=== PATIENT | male | born 1975 | race Caucasian/White ===

== ENCOUNTER 2018-11-11 01:33 | Emergency (ER) | payer BC, OTHER ==
--- NOTE | 2018-11-11 01:41 | Emergency Department Record ---
History of Present Illness - General Stated Complaint: ABDOMINAL PAIN Time Seen by Provider: 11/11/18 01:34 Source: Patient Mode of Arrival: Ambulatory Limitations: No limitations - History of Present Illness Initial Comments: 43 yo male presents not feeling well since 2pm. He developed initially some mild abdominal pain that increased over an hour. The pain is diffuse. After about an hour he developed nausea and diarrhea. The diarrhea has continued about every 1-2 hours. No blood. The abdominal pain has continued and progressed. The pain is still diffuse but he has more pain on the right side now. The appetite is diminished but no vomiting. No abdominal surgical history. PCP is Dr Annis. CROWELL Complaint: Abdominal pain, Other (nausea without vomiting and diarrhea) -: Hour(s) (12) Location: Diffuse, RLQ Radiation: RLQ Migration to: RLQ Severity: Severe Quality: Aching, Cramping Consistency: Constant Improves With: Nothing Worsens With: Eating Context: Other Associated Symptoms: Anorexia, Diarrhea - Related Data Previous Rx's Medication Instructions Recorded Ondansetron [Zofran Odt] 4 mg PO NOW #15 tab.rapdis 11/11/18 Allergies Allergy/AdvReac Type Severity Reaction Status Date / Time No Known Drug Allergies Allergy Verified 02/21/16 08:12 Review of Systems Constitutional: Denies: Chills, Fever, Malaise, Weakness Eyes: Denies: Eye discharge ENT: Denies: Congestion, Throat pain Respiratory: Denies: Cough, Dyspnea Cardiovascular: Denies: Chest pain, Palpitations, Syncope Endocrine: Denies: Fatigue, Polydipsia, Polyuria Gastrointestinal: Reports: As per HPI, Abdominal pain, Diarrhea, Nausea. Denies: Constipation, Hematemesis, Hematochezia Genitourinary: Denies: Dysuria, Frequency, Hematuria Musculoskeletal: Reports: Back pain. Denies: Arthralgia, Joint swelling, Myalgia Skin: Denies: Bruising, Change in color, Rash Neurological: Denies: Headache, Numbness, Weakness Psychiatric: Denies: Anxiety Hematological/Lymphatic: Denies: Easy bleeding, Easy bruising Past Medical History - SOCIAL HISTORY Smoking Status: Never smoker Drug Use: None - RESPIRATORY Hx Respiratory Disorders: No - CARDIOVASCULAR Hx Cardio Disorders: No - NEURO Hx Neuro Disorders: No - GI Hx GI Disorders: No - Hx Genitourinary Disorders: No - ENDOCRINE Hx Endocrine Disorders: No - MUSCULOSKELETAL Hx Musculoskeletal Disorders: No - PSYCH Hx Psych Problems: No - HEMATOLOGY/ONCOLOGY Hx Hematology/Oncology Disorders: No Physical Exam - General General Appearance: Alert, Oriented x3, Cooperative, No acute distress Limitations: No limitations - Head Head exam: Atraumatic, Normal inspection - Eye Eye exam: Normal appearance, PERRL. negative: Conjunctival injection, Scleral icterus - ENT ENT exam: Normal exam, Mucous membranes moist Ear exam: Normal external inspection Nasal Exam: Normal inspection Mouth exam: Normal external inspection - Neck Neck exam: Normal inspection - Respiratory Respiratory exam: Normal lung sounds bilaterally. negative: Respiratory distress - Cardiovascular Cardiovascular Exam: Regular rate, Normal rhythm, Normal heart sounds - GI/Abdominal GI/Abdominal exam: Soft, Tenderness (mildly diffusely tender, tender RLQ on deep palpation). negative: Distended, Hernia, Rebound, Rigid - Rectal Rectal exam: Deferred - exam: Deferred - Extremities Extremities exam: Normal inspection - Back Back exam: Reports: CVA tenderness (R), CVA tenderness (L) - Neurological Neurological exam: Alert, Oriented X3 - Psychiatric Psychiatric exam: Normal affect, Normal mood. negative: Agitated, Anxious - Skin Skin exam: Dry, Intact, Normal color, Warm Course - Reevaluation(s) Reevaluation #1: 11/11/18 02:07 The CBC is normal The UA is normal 11/11/18 02:18 The Lipase is normal The BMP is normal 11/11/18 02:24 The LFT's are normal 11/11/18 02:[address] scan of the abdomen and pelvis is negative for any acute process. Normal appendix. Likely small liver hemangiomas. 11/11/18 02:59 We discussed the results of the tests and questions were answered. With normal labs, UA, and CT we discussed the option of remaining in the ED longer for observation or DC with specific time frame for return for a recheck (4-8 hours). The patient prefers DC home at this time. He will return immediately if worse. We discussed likelihood of appendicitis is low but a recheck is strongly advised if not improving. DC vitals were reviewed. Medical Decision Making - Lab Data Result diagrams: 11/11/18 01:45 11/11/18 01:45 Disposition Disposition: Discharge Clinical Impression: Diarrhea, Abdominal pain Disposition: Home, Self-Care Condition: (1) Good Instructions: Abdominal Pain (ED), Acute Diarrhea (ED) Additional Instructions: Review this ER visit and the tests performed with your family doctor Return to the ER for a recheck if worse, any new concerns or questions, uncontrolled pain, vomiting or diarrhea in the next 6-12 hours Take the prescriptions provided as directed for nausea and cramps Prescriptions: Ondansetron [Zofran Odt] 4 mg PO NOW #15 tab.rapdis Time of Disposition: 03:02 Quality - Quality Measures Quality Measures: N/A - Blood Pressure Screening Does Patient Have Any of the Following: No Blood Pressure Classification: Pre-Hypertensive BP Reading Systolic Measurement: 130 Diastolic Measurement: 78 Screening for High Blood Pressure: < Pre-Hypertensive BP, F/U Documented > [G8950] Pre-Hypertensive Follow-up Interventions: Referral to alternative/primary care provider.
[2018-11-11] MEDS: KETOROLAC 30 MG/ML VIAL IVP ONE (01:52)
[2018-11-11] MEDS: ONDANSETRON HCL IV 4 MG/2 ML VIAL IVP ONE (01:52)
[2018-11-11] MEDS: ACETAMINOPHEN 1,000 MG/100 ML BTL IVPB ONE (01:55)
[2018-11-11 01:57] LABS: BASO % 0.1 % (0-6); EOS % 0.3 % (0-6); HEMATOCRIT 48.8 % (42.0-52.0); HEMOGLOBIN 16.3 gm/dl (14.0-18.0); LYMPH % 5.9 % (16-45); MEAN CELL VOLUME 91.6 fl (81-97); MEAN CORPUSCULAR HEMOGLOBIN 30.6 pg (27-33); MEAN CORPUSCULAR HGB CONC 33.4 g/dl (32-36); MEAN PLATELET VOLUME 8.5 fl (7.4-10.4); MONO % 4.9 % (0-9); PLATELET COUNT 299 K/uL (130-400); RED BLOOD COUNT 5.33 M/uL (4.40-5.70); RED CELL DISTRIBUTION WIDTH 13.2 % (11.5-14.5); WHITE BLOOD COUNT W/O DIFF 7.2 K/uL (4.2-12.2)
[2018-11-11] MEDS: 0.9 % SODIUM CHLORIDE 1,000 ML BAG IV ONE (01:57)
[2018-11-11 01:58] LABS: URINE APPEARANCE CLEAR; URINE BILIRUBIN NEGATIVE (NEGATIVE); URINE BLOOD NEGATIVE (NEGATIVE); URINE COLOR YELLOW; URINE GLUCOSE (UA) NEGATIVE (NEGATIVE); URINE KETONE NEGATIVE (NEGATIVE); URINE LEUKOCYTE ESTERASE NEGATIVE (NEGATIVE); URINE NITRITE NEGATIVE (NEGATIVE); URINE PROTEIN NEGATIVE (NEGATIVE)
[2018-11-11 02:16] LABS: BLOOD UREA NITROGEN 15 mg/dL (6-20); EST GLOMERULAR FILTRATION RATE > 60 mL/min; LIPASE 18 U/L (13-60); TOTAL PROTEIN 7.3 g/dL (6.6-8.7)
[2018-11-11 02:18] LABS: ABSOLUTE NEUTROPHIL COUNT 6.38; ANISOCYTOSIS 1+; GLUCOSE,RANDOM 132 mg/dL (74-109); PLATELET ESTIMATE NORMAL (NORMAL)
[2018-11-11 02:21] LABS: ALB/GLOB RATIO 1.8 (1.1-1.8); ALBUMIN 4.7 g/dL (4.0-5.0); ALKALINE PHOSPHATASE 67 U/L (40-129); ALT/SGPT 20 U/L (<41); AST/SGOT 17 U/L (10.0-50.0)
[2018-11-11] MEDS: ONDANSETRON 4 MG ODT TABLET SL ONE ×2 (03:18→03:20)
[2018-11-11] MEDS: HYOSCYAMINE SULFATE ODT 0.125 MG TAB.SUBL SL ONE (03:21)
--- NOTE | 2018-11-12 12:36 | CT SCAN REPORT ---
EXAM: CT SCAN OF THE ABDOMEN AND PELVIS WITH CONTRAST HISTORY: LOWER ABDOMINAL PAIN WITH NAUSEA AND DIARRHEA FOR TWELVE HOURS PRIOR TO ADMISSION. TECHNIQUE: Standard CT imaging of the abdomen and pelvis was performed with intravenous contrast. 100 ml of Omnipaque 300 were administered. Comparison: None. FINDINGS: The lung bases are clear. There are tiny hypodensities within the liver which are too small to characterize, but likely represent cysts or hemangiomas. The gallbladder, biliary tree, pancreas, spleen, and adrenal glands are normal. Small bilateral parapelvic renal cysts are present. There is a small cortical cyst as well within the posterolateral aspect of the right kidney inferiorly. This measures 1.1 cm. There is no acute urinary tract pathology. The aorta is normal in caliber. There is no retroperitoneal lymphadenopathy. The stomach and epigastrium are normal. There is fluid throughout the colon consistent with the history of diarrhea. There are no focal inflammatory changes. There is no evidence for colitis. The small bowel loops are unremarkable. The appendix is normal in caliber and without inflammation. Minor hyperdense material is present within the appendiceal lumen. There is no pneumoperitoneum or ascites. The urinary bladder and prostate appear normal. The abdominal wall appears intact. There are no acute osseous abnormalities. Degenerative changes are present within the lumbosacral spine. IMPRESSION: 1. FLUID FILLED COLON CONSISTENT WITH THE HISTORY OF DIARRHEA. 2. NO ACUTE INTRAABDOMINAL PATHOLOGY IDENTIFIED. 3. TINY CYSTS OR HEMANGIOMAS WITHIN THE LIVER. 4. SMALL BILATERAL RENAL CYSTS. JOB NUMBER: [id number] MTDD
== END 2018-11-11 03:26 | disposition home or self-care (01) ==
LOC: ER 01:33
DX: R10.31 Right lower quadrant pain (principal); R19.7 Diarrhea, unspecified
CPT/HCPCS: 74177; 80053; 81003; 83690; 85027; 96374; 96375; 99284; J1885; J2405; J7030